=== PATIENT | male | born 1960 | race Caucasian/White ===

== ENCOUNTER 2023-03-06 12:23 | Emergency (ER) | payer BC, OTHER ==
[2023-03-06 12:58] VITALS: BMI 26.2
[2023-03-06 13:04] VITALS: BP 110/76; PULSE 54; RESP 15; TEMP 98.3
== END 2023-03-06 15:07 | disposition home or self-care (01) ==
LOC: FER 12:23
PROC: 0HQGXZZ Repair Left Hand Skin, External Approach (ICD-10-PCS; principal; 2023-03-06)
PROC: 2W3KX1Z Immobilization of Left Finger using Splint (ICD-10-PCS; 2023-03-06)
DX: S61.213A Laceration without foreign body of left middle finger without damage to nail, initial encounter (principal); W23.0XXA Caught, crushed, jammed, or pinched between moving objects, initial encounter; Y93.9 Activity, unspecified; Y92.009 Unspecified place in unspecified non-institutional (private) residence as the place of occurrence of the external cause
CPT/HCPCS: 73140-TC-LT-FY; 99283-25